=== PATIENT | female | born 1975 | race Caucasian/White ===

== ENCOUNTER 2018-10-14 12:51 | Outpatient (CLI) | payer OTHER ==
--- NOTE | 2018-10-14 13:49 | MMO ---
BILATERAL SCREENING MAMMOGRAM: Date: 10/14/18 HISTORY: Baseline exam. This patient's mammogram was interpreted with the assistance of computer-aided detection. FINDINGS: The breasts are heterogeneously dense. A few benign calcifications are noted in both breasts. There i s no dominant mass, suspicious calcification, or other sign of malignancy. IMPRESSION: BIRADS 2: Benign Finding(s) POS: [facility]
== END 2018-10-14 12:52 | disposition home or self-care (01) ==
LOC: SCSMAMMO 12:51
PROVIDERS: ATTEND Family Medicine
DX: Z12.31 Encounter for screening mammogram for malignant neoplasm of breast (principal)
CPT/HCPCS: 77067

== ENCOUNTER 2019-01-12 07:40 | Outpatient (CLI) | payer OTHER ==
--- NOTE | 2019-01-12 09:36 | CT ---
CT ABDOMEN WITH AND WITHOUT IV CONTRAST: Date: 01/12/19 INDICATION: 43-year-old female with hematuria. CONTRAST: 99 mL [id number]. FINDINGS: No renal or ureteral calculus is evident. No hydronephrosis is demonstrated. There is a very tiny, mcleod bcentimeter, hypodensity within the anterior mid to superior pole of the right kidney measuring appro ximately 2.5 mm which may reflect a tiny cyst. No definite solid enhancing lesion is evident. No debbie s enhancing urothelial lesion is evident. No filling defect or stricture is identified within the seg mentally opacified renal collecting systems. The lung bases are clear. There is mild fatty infiltration near the falciform ligament. No focal hepatic lesion is evident. Pancreas, adrenal glands, and spleen appear within normal limits. No enlarged lymph nodes are evident. There is a normal appendix in the right lower quadrant. The bladder, rectum, and perirectal soft tiss ues are unremarkable. Gas-filled tampon seen within vaginal vault. Mild amount of retained stool seen in the colon. No acute osseous abnormality is evident. No suspicious osteolytic or osteoblastic lesions identified. IMPRESSION: 1. No solid renal lesion demonstrated. No gross urothelial lesion noted. No renal or ureteral calcul us is noted. 2. Small, subcentimeter, hypodensity within the anterior aspect of the mid to superior pole of the r ight kidney suspicious for a tiny cyst. 3. Focal area of fatty deposition near the falciform ligament. POS: [facility]
== END 2019-01-12 07:41 | disposition home or self-care (01) ==
LOC: SCSCT 07:40
PROVIDERS: ATTEND Urology
DX: R31.29 Other microscopic hematuria (principal); N28.89 Other specified disorders of kidney and ureter
CPT/HCPCS: 74178